=== PATIENT | female | born 1990 | race Caucasian/White ===

== ENCOUNTER → 2017-06-07 | Day surgery (SDC) | payer OTHER ==
[~2017-06-07] VITALS: Ht 160 cm; Wt 54.4 kg
--- NOTE | 2017-06-08 19:40 | Operative Report ---
Operative/Inv Procedure Report Surgery Date: 06/07/17 Name of Procedure: Repair left Achilles tendon tear Pre-Operative Diagnosis: Left Achilles tendon tear Post-Operative Diagnosis: Same Estimated Blood Loss: scant Surgeon/Certified Control Systems Technician: Shellie LEVIN,Familia Anesthesia: moderate sedation, block Drains: None Specimens: None Tourniquet: 42 minutes Complications: None Condition: Stable Operative Indication: Patient is a 26-year-old woman who has a history of injuring her left ankle while running up a ramp. She felt a popping sensation and felt that something struck her in the back. She had difficulty with plantar flexing after the injury and had pain in the back of her Achilles. She also noticed a deformity. She was evaluated in the office on the same day of her injury. She was found to have findings consistent with an Achilles tendon tear. We discussed risks benefits and expectations of surgical and nonsurgical options which included but were not limited to persistent pain, recurrent rupture, infection, skin slough, injury to blood vessel or nerve, anesthesia risks, need for subsequent surgery. She wished to proceed with surgical management. Operative/Procedure Note Note: Patient was brought to the operating room and transferred to the operating table. She was placed in a prone position and well-padded. The left lower extremity was prepped and draped in standard fashion. Preoperative IV antibiotic's were given prophylactically. Leg was elevated exsanguinated and tourniquet was inflated. The incision was made just along the medial aspect of the Achilles tendon centered over the anticipated tear site. These incision was taken down in 1 layer to the underlying peritenon layer and the distal stump was located. There was ecchymosis in the area. Debridement was completed of the stump. I then located the proximal stump which had migrated up near the proximally. Both stumps were relatively small. There was some frayed edges as normally found with Achilles tendon tears but the size of the tendon was certainly smaller than average. I copiously irrigated the wound. I then proceeded to pass tendon sutures in the distal stump and proximal stump. These were brought together with the foot in plantarflexion. Good apposition. The sutures were tied. I was satisfied with the fixation at that point I did do some reinforcing sutures with 2-0 Vicryl at the site to cover the suture knots. Copious irrigation followed. I then tested the fixation. I took the ankle to about neutral with no tension on the repair. However I did check the dorsiflexion of the unaffected right side preoperatively and I did find that her Achilles tendon was somewhat tight on that side with dorsiflexion to about neutral as well. I would address this with the patient after the surgical procedure. At that point copious irrigation followed. I then repaired as much as the peritenon as I could over the repair tendon site. Subcutaneous tissues closed with 3-0 Vicryl and skin was closed with a interrupted 3-0 nylon suture. Appropriate just his were applied and patient was awakened and taken to recovery room in good condition. No intraoperative complications. Blood loss was minimal due to tourniquet. The tourniquet was deflated after dressings and splints were applied. An anterior and dorsal splint was applied to maintain control of the foot and ankle to minimize tension on the fresh repair Discharge Disposition: PACU
== END ==
LOC: SDA 04:08 → EDSTATUS 07:00 → STS 09:52
DX: S86.012A Strain of left Achilles tendon, initial encounter (principal); Y93.02 Activity, running
CPT/HCPCS: 81025; J0690; J2250